=== PATIENT | female | born 1950 | race Caucasian/White ===

== ENCOUNTER 2017-03-13 22:07 | Observation (INO) | payer MEDICARE, BC ==
--- NOTE | ~2017-03-13 | HP ---
History And Physical [id number] [place]. [address] NAME: ORQUIDEA CHAWLA : 52 STATUS : ADM Nhi PAT#: [id number] AGE: 66 ADM/REG DATE : 03/13/17 MR#: [id number] REPORT SERV DATE: 03/14/17 DICTATED BY: DANETTE TALAMANTES DATE: 03/14/17 REPORT STATUS : Draft TRANSCRIBED BY: WILLY DATE: 03/14/17 DATE OF ADMISSION: 03/13/2017 CHIEF COMPLAINT: Chest pain and exhaustion. HISTORY OF PRESENT ILLNESS: This is a very pleasant 66-year-old female with cardiovascular risk factors of hyperlipidemia and family history for premature coronary artery disease, who presented to the emergency department around 7:00 p.m. yesterday evening with left-sided chest pains and "exhaustion." She is a healthy lady, who exercises five times a week at the gym, and after her normal workout yesterday, she had some lunch, and in the afternoon developed which she called "overwhelming exhaustion," and then she noticed some left-sided chest pains. She described the chest pain as "tightness" that were intermittent lasting up to a minute. There was no accompanying shortness of breath or diaphoresis. Last week, she was on vacation and noticed when she was walking on the beach with her friend, both her arms would "feel different" at the end of the walk. This occurred twice. With all these symptoms, she became concerned, given her family history of premature coronary artery disease, and presented to the emergency department. She states perhaps a couple of brief pains last night, but no further symptoms while she has been here in the Chest Pain Observation Unit. The patient denies any recent fever, cough, or chills. Denies significant palpitations, presyncope, or edema. She has history of a treadmill only stress test in 2013, which was reportedly negative. No personal history for TN, CVA, DVT, or PE. MEDICAL HISTORY: 1. Mixed hyperlipidemia. 2. Osteoporosis. 3. Renal calculi x2. 4. Treadmill only stress test in 2012, which was a negative treadmill study. PAST SURGICAL HISTORY: 1. Tonsillectomy. 2. Tubal ligation. 3. LASIK eye surgery. HOME MEDICATIONS: Tylenol 1000 mg p.r.n., Fosamax 70 mg q.7 days, aspirin 81 q.h.s., Lipitor 10 mg q.48 hours, vitamin D 1000 units q.h.s., and multivitamin q.h.s. ALLERGIES: ALLERGY TO SULFA CAUSES RASH, ITCHING, AND THROAT SWELLING. SOCIAL HISTORY: The patient is with two sons. She is a retired teacher. She has never smoked. She drinks a glass of wine a couple of times per week. Denies illicit drug use. Has a regular exercise program, five times per week. FAMILY HISTORY: Father of an TN at age 42 and mother of an TN at age 61. Most of her mother's siblings also with coronary artery disease. History And Physical [address] [address] NAME: ORQUIDEA CHAWLA : 52 STATUS : ADM Nhi PAT#: [id number] AGE: 66 ADM/REG DATE : 03/13/17 MR#: [id number] REPORT SERV DATE: 03/14/17 DICTATED BY: DANETTE TALAMANTES DATE: 03/14/17 REPORT STATUS : Draft TRANSCRIBED BY: WILLY DATE: 03/14/17 REVIEW OF SYSTEMS: Negative except as indicated above. PHYSICAL EXAMINATION: VITAL SIGNS: Blood pressure 103/53, heart rate 80s to 90s, temperature 98.6, and pulse oximetry 99% room air. BMI of 21.7. GENERAL: Well-developed, well-nourished, in no acute distress HEENT: Anicteric. Normal EOM. Head normocephalic. PERRLA, no xanthelasma. NECK: Supple. No JVD. Carotids normal without bruits. LUNGS: Clear to auscultation bilaterally anterior and posterior. Respirations even and unlabored. CARDIAC: S1, S2 regular rate and rhythm. No murmurs, rubs, or gallops. No chest wall tenderness. ABDOMEN: Normal bowel sounds. Soft and nontender to palpation. No masses or organomegaly. EXTREMITIES: No peripheral edema. DP/PT and radial pulses palpable bilaterally. No clubbing or cyanosis. SKIN: Warm and dry. Normal turgor. No pallor or cyanosis. MUSCULOSKELETAL: Moving all extremities x4. Normal muscle strength. NEURO/PSYCH: Alert and oriented with appropriate affect. LABORATORY DATA: White blood count 6.9, hemoglobin 13.7, and hematocrit 40.3. Sodium 142, potassium 4.4, BUN 24, and creatinine 0.9. Troponin less than 0.02 x2. Urinalysis is negative with the exception of 4 rbc's. IMAGING: Chest x-ray shows no acute cardiopulmonary processes. EKGs interpreted by myself indicate normal sinus rhythm on two separate EKGs. ASSESSMENT AND PLAN: 1. Atypical chest pain and symptom of overwhelming exhaustion in this 66-year-old female with cardiovascular risk factors of hyperlipidemia and family history for premature coronary artery disease. She has been observed overnight in the Chest Pain Observation Unit, and EKG and troponins are negative. Recommend proceeding with a nuclear stress test today. If this is low risk, we will plan to discharge home today with followup with her primary care physician. If any indication of ischemia, we will plan to keep her n.p.o. for cardiac catheterization later today. 2. Mixed hyperlipidemia, on Lipitor 10 every 48 hours. We will continue. 3. Family history of premature coronary artery disease. The patient keeps an exercise program with a low-fat low-cholesterol diet. I have encouraged her in continuing modifying these risk factors. MICHELLE/WILLY Danette Talamantes NP History And Physical [address] [address] NAME: ORQUIDEA CHAWLA : 52 STATUS : ADM Nhi PAT#: [id number] AGE: 66 ADM/REG DATE : 03/13/17 MR#: [id number] REPORT SERV DATE: 03/14/17 DICTATED BY: DANETTE TALAMANTES DATE: 03/14/17 REPORT STATUS : Draft TRANSCRIBED BY: WILLY DATE: 03/14/17 / [id number] CC: Sandra Steinberg, MSN, [employer] Jessica Elliott M.D.
[2017-03-13 20:40] LABS: BASOPHILS 0.2 %; BASOPHILS ABSOLUTE 0.01 10/3/uL (0.0-0.16); EOSINOPHILS 0.8 %; EOSINOPHILS ABSOLUTE 0.05 10/3/uL (0.0-0.53); HEMATOCRIT 40.3 % (36.0-48.0); HEMOGLOBIN 13.7 g/dL (12.0-16.0); IMMATURE GRANULOCYTES 0.2 %; IMMATURE GRANULOCYTES ABSOLUTE 0.01 10/3/uL (0.0-0.11); LYMPHOCYTES 18.7 %; LYMPHOCYTES ABSOLUTE 1.14 10/3/uL (0.67-4.30); MEAN CORPUSCULAR HEMOGLOB 31.3 pg (26.0-34.0); MEAN PLATELET VOLUME 9.8 fL (9.2-13.0); MONOCYTES 5.7 %; MONOCYTES ABSOLUTE 0.35 10/3/uL (0.21-1.20); NEUTROPHILS 74.4 %; NEUTROPHILS ABSOLUTE 4.54 10/3/uL (2.02-8.40); PLATELET COUNT 228 10/3/uL (150-400); RBC DISTRIBUTION WIDTH 12.7 % (12.0-16.0); RED CELL COUNT 4.38 10/6/uL (4.0-5.6); WHITE BLOOD CELLS 6.1 10/3/uL (4.5-10.5)
[2017-03-13 20:44] LABS: MANUAL DIFF NO %
[2017-03-13 20:52] LABS: PARTIAL THROMBO TIME 25.2 SEC (22.5-37.2); PROTIME (NOT ORD) 12.7 SEC (12.0-14.5)
[2017-03-13 21:00] LABS: BUN (BLOOD UREA NITROGEN) 24 MG/DL (6-23); CALCIUM, SERUM 9.2 MG/DL (8.5-10.4); CHEST PAIN PROFILE TAT 0 Hrs 26 Mins; CHLORIDE, SERUM 106 MMOL/L (96-112); CO2 (CARBON DIOXIDE) 31 MMOL/L (24-34); CREATININE 0.98 MG/DL (0.55-1.02); GFR AFRICAN AMERICAN 70 ML/MIN (>=60); GFR NON AFRICAN AMERICAN 61 ML/MIN (>=60); GLUCOSE, SERUM 97 MG/DL (60-99); POTASSIUM, SERUM 4.4 MMOL/L (3.5-5.3); SODIUM, SERUM 142 MMOL/L (135-148); TROPONIN I <0.02 NG/ML (<0.05)
[2017-03-13 21:45] LABS: WBC (NOT ORDERED) (RFLEX) 0 (0-5)
[2017-03-13 21:52] LABS: ASCORBIC ACID (UR NOT ORDER) NEG (NEG); BILIRUBIN, URINE NEGATIVE (NEG); ER URINALYSIS TAT 0 Hrs 08 Mins; KETONE, URINE NEGATIVE (NEG); LEUKOCYTE ESTERASE(NOT OR NEG (NEG); NITRITE (URINE) NEG (NEG)
[~2017-03-13 22:07] MED LIST: ASAB PO; COSAMIN DS1 TAB PO; FOSAMAX70 MG PO; LIPITOR10 PO; PERCOCET1 TA3 PO; VITAMIN D1000 UNI1 PO; ZOFRAN4 PO
[2017-03-13] MEDS ORDERED: FOSAMAX70 MG PO (22:08)
[2017-03-13] MEDS ORDERED: MULTIVIT/MIN PO (22:08)
[2017-03-13] MEDS ORDERED: VITAMIN D31000 UNIT PO (22:08)
[2017-03-13] MEDS ORDERED: ACET500CAP PO (22:09)
== END 2017-03-14 11:40 | disposition home or self-care (01) ==
LOC: ER 22:07 → CDU1 22:14
PROVIDERS: Emergency Medicine
DX: R07.89 Other chest pain (principal); E78.2 Mixed hyperlipidemia; M81.0 Age-related osteoporosis without current pathological fracture; Z87.442 Personal history of urinary calculi; Z82.49 Family history of ischemic heart disease and other diseases of the circulatory system; Z90.89 Acquired absence of other organs; Z98.51 Tubal ligation status; Z98.890 Other specified postprocedural states; Z88.2 Allergy status to sulfonamides; Z79.899 Other long term (current) drug therapy; Z79.82 Long term (current) use of aspirin
CPT/HCPCS: 71010; 78452; 80048; 81001; 83735; 84484; 85025; 85610; 85730; 93005; 93017; 99285; A9270-GY; A9502; G0378